=== PATIENT | male | born 1940 | race Two or more races ===

== ENCOUNTER 2017-06-15 15:36 | Emergency (ER) | payer OTHER ==
[~2017-06-15] VITALS: Ht 185.4 cm; Wt 52.2 kg
--- NOTE | 2017-06-15 15:45 | NUR ---
PT BIBRA FROM THE STREETS TO ER BED 16. PER REPORT, HAVE FALLEN. SCALP LACERATION NOTED . PT APPEARS ALTERED. GOWNED AND PLACED ON MONITOR. AWAITING MD WYNN.
--- NOTE | 2017-06-15 16:12 | NUR ---
DR PENA AT BEDSIDE FOR EVAL.
--- NOTE | 2017-06-15 16:23 | NUR ---
IV LINE STARTED. BLOOD DRAWN AND SENT TO LAB.
--- NOTE | 2017-06-15 16:26 | NUR ---
PT TO RADIOLOGY FOR HEAD AND C SPINE CT VIA [facility].
[2017-06-15 16:37] LABS: CALCIUM, SERUM 9.7 mg/dL (8.5-10.1); CARBON DIOXIDE 30 mmol/L (21-32); CHLORIDE 104 mmol/L (98-107); CREATININE 0.9 mg/dL (0.6-1.3); GLUCOSE 102 mg/dL (74-106); POTASSIUM 3.8 mmol/L (3.5-5.1); SODIUM SERUM 138 mmol/L (136-145); UREA NITROGEN, BLOOD 10 mg/dL (7-18)
[2017-06-15 16:42] LABS: ALANINE AMINOTRANSFERASE 34 U/L (12-78); ALBUMIN 3.1 g/dL (3.4-5.0); ALCOHOL, BLOOD < 3 mg/dL (0-0); ALKALINE PHOSPHATASE 120 U/L (46-116); ASPARTATE AMINOTRANSFERASE 50 U/L (15-37); BASOPHILS # (AUTO) 0.1 /CMM (0.0-0.2); BASOPHILS % (AUTO) 1.8 % (0.0-2.0); BILIRUBIN,DIRECT 0.1 mg/dL (0.0-0.2); BILIRUBIN,TOTAL 0.6 mg/dL (0.2-1.0); EOSINOPHILS % (AUTO) 0.3 % (0.0-6.0); HEMATOCRIT 47 % (39-51); HEMOGLOBIN 15.9 g/dL (13.5-17.5); LYMPHOCYTES # (AUTO) 1.1 /CMM (0.8-4.8); LYMPHOCYTES % (AUTO) 14.1 % (20.0-44.0); MEAN CORPUSCULAR HEMOGLOBIN 29 PG (26.0-33.0); MEAN CORPUSCULAR HGB CONC 34 g/dl (31.0-36.0); MEAN CORPUSCULAR VOLUME 85 fL (80-96); MONOCYTES # (AUTO) 0.8 /CMM (0.1-1.30); MONOCYTES % (AUTO) 9.8 % (2.0-12.0); NEUTROPHILS # (AUTO) 5.9 /CMM (1.8-8.9); PLATELET COUNT (AUTO) 183 /CMM (150-450); RDW COEFFICIENT OF VARIATION 13.6 (11.5-15.0); RED BLOOD CELL COUNT(AUTO) 5.52 MIL/uL (4.5-6.0); TOTAL PROTEIN, SERUM 8.7 g/dL (6.4-8.2); WHITE BLOOD COUNT (AUTO) 7.9 K/uL (4.3-11.0)
[2017-06-15 16:45] LABS: ACETAMINOPHEN < 2 ug/ml (10-30); SALICYLATE < 2.8 mg/dL (2.8-20.0)
--- NOTE | 2017-06-15 16:53 | NUR ---
PT STILL UNABLE TO URINATE. URINAL PROVIDED WILL TRY AGAIN LATER.
[2017-06-15 17:34] LABS: APPEARANCE,URINE Clear (CLEAR); BILIRUBIN,URINE Negative (NEGATIVE); BLOOD, URINE Small Ery/uL (NEGATIVE); COLOR,URINE Yellow (YELLOW); KETONES,URINE Negative (NEGATIVE); LEUKOCYTE ESTERASE ,URINE Negative (NEGATIVE); NITRITE, URINE Negative (NEGATIVE); PH,URINE 8.5 (5.0-8.0); PROTEIN,URINE Trace mg/dl (NEGATIVE); UGLUCOSE Negative (NEGATIVE); UROBILINOGEN,URINE 0.2 EU/dL (0.2)
[2017-06-15 17:47] LABS: BACTERIA,URINE None seen /HPF (None Seen); SQUAMOUS EPITHELIAL CELL,UR Few /HPF (None Seen); WBC,URINE 0-2 /HPF (0-3)
--- NOTE | 2017-06-15 23:48 | NUR ---
RECEIVED CALL FROM ROOM MATE YOSELIN ORTIZ, , SAID PT HAS BEEN MISSING SINCE LAST NIGHT AND WILL GLADLY ACCEPT THE PT BACK [address]
[2017-06-16 00:30] VITALS: BP 144/76
--- NOTE | 2017-06-16 00:32 | NUR ---
Patient discharged by taxi for transport home in stable condition; room mate Hebert Jacome stated he is awaiting pt's arrival ([phone]). Written and verbal after care instructions given. Patient verbalizes understanding of instruction.IV removed. Catheter intact and site benign. Pressure and 4x4 applied to site. No bleeding noted. Pt ambulatory with a steady gait. VSS, NAD noted on DC. Denies complaint on DC.
== END 2017-06-16 00:34 | disposition home or self-care (01) ==
LOC: ER 15:38 → EDBD 15:38 → ER 06-16 00:34
DX: R53.1 Weakness (principal); R41.82 Altered mental status, unspecified; W18.39XA Other fall on same level, initial encounter; Y93.89 Activity, other specified; Y92.89 Other specified places as the place of occurrence of the external cause; Y99.8 Other external cause status
CPT/HCPCS: 36415; 70450; 71010; 72125; 80048; 80076; 80305; 80329; 81001; 82962; 85025; 99285; A4606; A6402; G0480 ×2; 81000-TC; Z7610